=== PATIENT | female | born 1955 | race Caucasian/White ===

== ENCOUNTER 2021-06-07 10:31 | Outpatient (CLI) | payer SELFPAY ==
[2021-06-07 08:57] VITALS: BMI 31.8
[2021-06-07 12:35] VITALS: BP 116/68; PULSE 74; RESP 18; TEMP 36.4; O2SAT 98
== END 2021-06-07 10:32 | disposition home or self-care (01) ==
PROVIDERS: PCP Nurse Practitioner Family; Visit Provider Nurse Practitioner Family
DX: U07.1 COVID-19 (principal)
CPT/HCPCS: 96365